=== PATIENT | male | born 1945 | race Hispanic/Latino ===

== ENCOUNTER → 2020-09-27 | Outpatient (CLI) | payer MEDICARE, OTHER ==
[~2020-09-27] MED LIST: Z.0.CELEBREX200 MG; Z.0.CIPRO500 MG; Z.0.CITALOPRAM HBR40; Z.0.CRESTOR10 MG; Z.0.DIOVAN160 MG; Z.0.ESIDRIX25 MG; Z.0.FINASTERIDE5 MG; Z.0.GLIPIZIDE10 MG; Z.0.NEURONTIN300 MG; Z.0.NIACIN500 MG; Z.0.TAMSULOSIN HCL0.; Z.1.METFORMIN HCL100; [UNRECOGNIZED DRUG - OTHER]
== END ==
LOC: US 10:46
PROVIDERS: ATTEND Urology
DX: N28.1 Cyst of kidney, acquired (principal)
CPT/HCPCS: 76770